=== PATIENT | female | born 1995 | race African-American/Black ===

== ENCOUNTER 2025-07-21 11:23 | Outpatient (CLI) | payer BC, SELFPAY ==
--- NOTE | ~2025-07-21 | US_ITS ---
EXAM/PROCEDURE: US transvaginal HISTORY: Pelvic Pain COMPARISON: None available. TECHNIQUE: Endovaginal pelvic ultrasound LMP: July 17, 2025 FINDINGS: The uterus measures 6.0 x 3.5 x 4.2 cm. Endometrial stripe: 1.9 mm Right ovary: 3.1 x 2.0 x 2.0 cm Left ovary: 1.9 x 2.7 x 1.5 cm. Both ovaries appear normal in echotexture and vascular flow. No free fluid is seen. IMPRESSION: Pelvic ultrasound within normal limits. Vascular flow for the ovaries appears within normal limits. Reviewed, dictated and finalized at location A. [employer] IMPRESSION: Pelvic ultrasound within normal limits. Vascular flow for the ovari es appears within normal limits.
== END 2025-07-21 11:24 | disposition home or self-care (01) ==
LOC: MICIMG 11:25
DX: R10.20 Pelvic and perineal pain unspecified side (principal)
CPT/HCPCS: 76830